=== PATIENT | female | born 1990 | race Caucasian/White ===

== ENCOUNTER 2024-06-09 05:00 | Day surgery (SDC) | payer OTHER ==
[2024-06-05 14:46] VITALS: BMI 40.7
[2024-06-09 12:17] VITALS: TEMP 97.5
[2024-06-09 12:38] VITALS: BP 128/78; PULSE 68; RESP 17
== END 2024-06-09 12:55 | disposition home or self-care (01) ==
LOC: JASU-ENDO 05:00
PROVIDERS: ATTEND Student in an Organized Health Care Education/Training Program
PROC: 0DB78ZX Excision of Stomach, Pylorus, Via Natural or Artificial Opening Endoscopic, Diagnostic (ICD-10-PCS; 2024-06-09)
PROC: 0DB68ZX Excision of Stomach, Via Natural or Artificial Opening Endoscopic, Diagnostic (ICD-10-PCS; 2024-06-09)
PROC: 0DB38ZX Excision of Lower Esophagus, Via Natural or Artificial Opening Endoscopic, Diagnostic (ICD-10-PCS; principal; 2024-06-09 11:45)
DX: K29.50 Unspecified chronic gastritis without bleeding (principal); B96.81 Helicobacter pylori [H. pylori] as the cause of diseases classified elsewhere
CPT/HCPCS: 81025; 88305-TC; 88342-TC